=== PATIENT | male | born 1960 | race Caucasian/White ===

== ENCOUNTER 2017-08-07 07:18 | Emergency (ER) | payer OTHER ==
[2017-08-07] MEDS ORDERED: Tetan/Diph/Pertus SYR(Tdap)* 0.5 ML SYR(BOOSTRIX) use SYR IM ONE (07:25)
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
[2017-08-07 09:52] VITALS: BP 161/91
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
== END 2017-08-07 09:56 | disposition home or self-care (01) ==
LOC: ED 07:18
DX: S00.83XA Contusion of other part of head, initial encounter (principal); S02.40DA Maxillary fracture, left side, initial encounter for closed fracture; Y04.2XXA Assault by strike against or bumped into by another person, initial encounter; Y93.9 Activity, unspecified; Y92.038 Other place in apartment as the place of occurrence of the external cause; H05.20 Unspecified exophthalmos; Y07.410 Brother, perpetrator of maltreatment and neglect; Y07.11 Biological father, perpetrator of maltreatment and neglect; Z23 Encounter for immunization; F41.9 Anxiety disorder, unspecified; Z72.0 Tobacco use
CPT/HCPCS: 70450; 70486; 90471; 90715; 99282

== ENCOUNTER 2017-08-07 15:42 | Emergency (ER) | payer OTHER ==
[2017-08-07 16:52] VITALS: BP 170/99
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
== END 2017-08-07 16:50 | disposition home or self-care (01) ==
LOC: ED 15:42
DX: R20.2 Paresthesia of skin (principal); S02.40DS Maxillary fracture, left side, sequela; S06.9X0S Unspecified intracranial injury without loss of consciousness, sequela; Y04.2XXS Assault by strike against or bumped into by another person, sequela; Z72.0 Tobacco use
CPT/HCPCS: 99282